=== PATIENT | male | born 1960 | race African-American/Black ===

== ENCOUNTER 2018-10-24 20:31 | Emergency (ER) | payer MEDICAID ==
[~2018-10-24] VITALS: Ht 167.6 cm; Wt 71.0 kg
[2018-10-24] MEDS ORDERED: HYDROCODONE/ACETAMINOPHEN 5/325MG TABLET PO ONE (23:00)
[2018-10-24] MEDS ORDERED: KETOROLAC 60MG/2ML VIAL IM ONE (23:00)
[2018-10-25] MEDS ORDERED: CEFTRIAXONE SODIUM 250 MG/VIAL IM ONE (01:00)
[2018-10-25] MEDS ORDERED: AZITHROMYCIN 500 MG TABLET PO ONE (01:00)
[2018-10-25 01:50] VITALS: BP 132/74
== END 2018-10-25 01:51 | disposition home or self-care (01) ==
LOC: ER 20:31
DX: N43.2 Other hydrocele (principal); N50.812 Left testicular pain; N50.811 Right testicular pain; F12.10 Cannabis abuse, uncomplicated; I10 Essential (primary) hypertension; F17.290 Nicotine dependence, other tobacco product, uncomplicated; Z98.890 Other specified postprocedural states
CPT/HCPCS: 76870; 93976; 96372; 99284; 99406; J0696; J1885; Z7610

== ENCOUNTER 2019-09-13 01:51 | Emergency (ER) | payer MEDICAID ==
[~2019-09-13] VITALS: Ht 170.2 cm; Wt 68.0 kg
[2019-09-13] MEDS ORDERED: IBUPROFEN 600MG TABLET PO ONE (02:15)
[2019-09-13] MEDS: IBUPROFEN 600MG TABLET PO SCH ×2 (04:04→05:50)
[2019-09-13 05:53] VITALS: BP 151/96
== END 2019-09-13 05:54 | disposition home or self-care (01) ==
LOC: ER 01:51
DX: M25.562 Pain in left knee (principal); I10 Essential (primary) hypertension; F12.10 Cannabis abuse, uncomplicated
CPT/HCPCS: 73562; 99283

== ENCOUNTER 2019-09-17 21:14 | Emergency (ER) | payer MEDICAID ==
[~2019-09-17] VITALS: Ht 177.8 cm; Wt 77.0 kg
[2019-09-17 23:10] LABS: BASOPHILS % 0.7 % (0.0-2.0); EOSINOPHILS % 3.7 % (0.0-5.0); HEMATOCRIT. 39.1 % (42.0-52.0); HEMOGLOBIN. 13.1 g/dL (14.0-18.0); LYMPHOCYTES % 25.2 % (20.0-50.0); MEAN CORPUSCULAR HEMOGLOBIN 29.8 pg (28.0-32.0); MEAN CORPUSCULAR VOLUME 89.1 fL (80.0-94.0); MONOCYTES % 8.1 % (2.0-8.0); NEUTROPHILS % 62.3 % (40.0-76.0); PLATELET 292 x1000/uL (130-400); RED BLOOD CELL COUNT 4.39 mill/uL (4.7-6.1); RED CELL DISTRIBUTION WIDTH 13.5 % (11.6-14.6)
[2019-09-17 23:15] LABS: CHLORIDE 110 mEq/L (98-107)
[2019-09-18 03:25] VITALS: BP 170/103
== END 2019-09-18 04:31 | disposition home or self-care (01) ==
LOC: ER 21:14
DX: R53.1 Weakness (principal); R00.0 Tachycardia, unspecified; E11.9 Type 2 diabetes mellitus without complications; I10 Essential (primary) hypertension; F12.10 Cannabis abuse, uncomplicated; F17.210 Nicotine dependence, cigarettes, uncomplicated
CPT/HCPCS: 36415; 71045; 80053; 82962; 85025; 93005; 99285